=== PATIENT | male | born 1995 | race Caucasian/White ===

== ENCOUNTER 2023-09-03 23:25 | Emergency (ER) | payer OTHER ==
[2023-09-03] MEDS ORDERED: Ketorolac Tromethamine 30 MG (1 mL) VIAL ONE (23:48)
[2023-09-03] MEDS ORDERED: Ondansetron PF 4 MG/2 ML Vial ONE (23:48)
== END 2023-09-04 00:22 | disposition left against medical advice (07) ==
LOC: CSHERS 23:25
DX: R45.4 Irritability and anger (principal); R45.1 Restlessness and agitation; R10.32 Left lower quadrant pain; F17.210 Nicotine dependence, cigarettes, uncomplicated; Z55.6 Problems related to health literacy
CPT/HCPCS: 99283; J1885; J2405

== ENCOUNTER 2024-03-25 13:04 | Emergency (ER) | payer OTHER ==
[2024-03-25] MEDS ORDERED: Ibuprofen 200 MG TAB ONE (14:00)
== END 2024-03-25 14:11 | disposition home or self-care (01) ==
LOC: CSHERS 13:04
DX: L03.114 Cellulitis of left upper limb (principal); F17.210 Nicotine dependence, cigarettes, uncomplicated
CPT/HCPCS: 99283

== ENCOUNTER 2024-12-31 15:25 | Emergency (ER) | payer OTHER ==
[2024-12-31] MEDS ORDERED: Ketorolac Tromethamine 30 MG (1 mL) VIAL ONE (17:10)
== END 2024-12-31 17:16 | disposition home or self-care (01) ==
LOC: CSHERS 15:25
DX: S00.83XA Contusion of other part of head, initial encounter (principal); F17.210 Nicotine dependence, cigarettes, uncomplicated; Y04.8XXA Assault by other bodily force, initial encounter; Y92.410 Unspecified street and highway as the place of occurrence of the external cause
CPT/HCPCS: 70450; 70486; 96372; J1885